=== PATIENT | female | born 1945 | race Caucasian/White ===

== ENCOUNTER → 2016-07-02 | Outpatient (CLI) | payer MEDICARE ==
[~2016-07-02] MED LIST: ASPI-515 PO; CEPH-376 PO; DEXA2TAB PO; ESTR0.5T PO; GADOBUTROL 7.5 MMOL/7.5 ML PFS ONE; LORA-439 PO; OMEP10CA4 PO; PRAV20TA2 PO
== END | disposition home or self-care (01) ==
LOC: CFH 12:57
PROVIDERS: ATTEND Radiology Radiation Oncology
DX: C79.31 Secondary malignant neoplasm of brain (principal); C34.31 Malignant neoplasm of lower lobe, right bronchus or lung; G93.9 Disorder of brain, unspecified
CPT/HCPCS: 70553; A9585

== ENCOUNTER → 2016-07-03 | Outpatient (CLI) | payer MEDICARE ==
[~2016-07-03] MED LIST changes: -GADOBUTROL 7.5 MMOL/7.5 ML PFS ONE
== END | disposition home or self-care (01) ==
LOC: ROC 14:53
PROVIDERS: ATTEND Radiology Radiation Oncology
DX: C34.31 Malignant neoplasm of lower lobe, right bronchus or lung (principal); C79.31 Secondary malignant neoplasm of brain
CPT/HCPCS: G0463

== ENCOUNTER → 2016-10-01 | Outpatient (CLI) | payer MEDICARE ==
[~2016-10-01] MED LIST changes: +GADOBUTROL 7.5 MMOL/7.5 ML VIAL ONE
== END | disposition home or self-care (01) ==
LOC: CFH 12:58
PROVIDERS: ATTEND Radiology Radiation Oncology
DX: C79.31 Secondary malignant neoplasm of brain (principal); C34.90 Malignant neoplasm of unspecified part of unspecified bronchus or lung; J34.1 Cyst and mucocele of nose and nasal sinus; G93.6 Cerebral edema; D32.9 Benign neoplasm of meninges, unspecified
CPT/HCPCS: 70553; A9585

== ENCOUNTER → 2016-10-02 | Outpatient (CLI) | payer MEDICARE ==
[~2016-10-02] MED LIST changes: -GADOBUTROL 7.5 MMOL/7.5 ML VIAL ONE
== END | disposition home or self-care (01) ==
LOC: ROC 09:44
PROVIDERS: ATTEND Radiology Radiation Oncology
DX: C34.31 Malignant neoplasm of lower lobe, right bronchus or lung (principal); C79.31 Secondary malignant neoplasm of brain; G62.9 Polyneuropathy, unspecified
CPT/HCPCS: G0463

== ENCOUNTER → 2016-10-28 | Outpatient (CLI) | payer MEDICARE ==
[~2016-10-28] MED LIST changes: +OMNIPAQUE 350 MG/ML, 100ML BOTTLE ONE
== END | disposition home or self-care (01) ==
LOC: CFH 10:32
PROVIDERS: ATTEND Internal Medicine Hematology & Oncology
DX: C79.51 Secondary malignant neoplasm of bone (principal); R91.8 Other nonspecific abnormal finding of lung field; J43.2 Centrilobular emphysema; I70.0 Atherosclerosis of aorta; D73.89 Other diseases of spleen
CPT/HCPCS: 71260; 74177; Q9967

== ENCOUNTER → 2016-10-28 | Outpatient (CLI) | payer MEDICARE ==
[~2016-10-28] MED LIST changes: -OMNIPAQUE 350 MG/ML, 100ML BOTTLE ONE
== END | disposition home or self-care (01) ==
LOC: PETCFH 10:35
PROVIDERS: ATTEND Internal Medicine Hematology & Oncology
DX: C34.31 Malignant neoplasm of lower lobe, right bronchus or lung (principal)
CPT/HCPCS: 78306; A9503

== ENCOUNTER → 2016-12-04 | Outpatient (CLI) | payer MEDICARE ==
[~2016-12-04] MED LIST changes: +GADOBUTROL 7.5 MMOL/7.5 ML PFS ONE
== END | disposition home or self-care (01) ==
LOC: CFH 07:25
PROVIDERS: ATTEND Radiology Radiation Oncology
DX: C79.31 Secondary malignant neoplasm of brain (principal); C34.31 Malignant neoplasm of lower lobe, right bronchus or lung
CPT/HCPCS: 70553; A9585

== ENCOUNTER → 2016-12-04 | Outpatient (CLI) | payer MEDICARE ==
[~2016-12-04] MED LIST changes: -GADOBUTROL 7.5 MMOL/7.5 ML PFS ONE
== END | disposition home or self-care (01) ==
LOC: ROC 08:10
PROVIDERS: ATTEND Radiology Radiation Oncology
DX: C34.32 Malignant neoplasm of lower lobe, left bronchus or lung (principal); C79.31 Secondary malignant neoplasm of brain; Z92.3 Personal history of irradiation
CPT/HCPCS: G0463

== ENCOUNTER 2016-12-17 14:06 | Inpatient (IN) | payer MEDICARE ==
[~2016-12-17] VITALS: Ht 154.9 cm; Wt 63.0 kg
[2016-12-17] MEDS ORDERED: SODIUM CHLORIDE FLUSH 10ML SYR IVF ONE (15:00)
[2016-12-17] MEDS ORDERED: DEXAMETHASONE 4 MG/ML, 5ML ONE (15:26)
[2016-12-17] MEDS ORDERED: DEXAMETHASONE 4 MG/ML, 1ML IVPush ONE (15:30)
[2016-12-17 15:33] LABS: ASPARTATE AMINO TRANSFERASE 13 U/L (15-37); BLOOD UREA NITROGEN 18 mg/dL (7-18)
[2016-12-17] MEDS ORDERED: ALPR0.5T6 PO (15:59)
[2016-12-17] MEDS ORDERED: FOLI0.4T2 PO (15:59)
[2016-12-17] MEDS ORDERED: ONDA8TAB12 PO (15:59)
[2016-12-17] MEDS ORDERED: ONDANSETRON 2MG/ML, 2ML IVPush PRN (16:30)
[2016-12-17] MEDS ORDERED: OXYcodone IR 5MG TABLET PO PRN (16:30)
[2016-12-17] MEDS ORDERED: DOCUSATE 100 MG CAPSULE PO PRN (16:30)
[2016-12-17] MEDS ORDERED: morphine SULFATE 10 MG/ML, 1ML IVPush PRN (16:30)
[2016-12-17] MEDS ORDERED: ESTRADIOL 0.5 MG TABLET PO SCH (16:30)
[2016-12-17] MEDS ORDERED: POLYETHYLENE GLYCOL 17 GM PACKET PO PRN (16:30)
[2016-12-17] MEDS ORDERED: ACETAMINOPHEN 325 MG TABLET PO PRN (16:30)
[2016-12-17 16:37] LABS: HEMATOCRIT 37.3 % (34.6-47.8); HEMOGLOBIN 12.1 g/dL (11.7-16.4)
[2016-12-17 16:42] LABS: DIFF TOTAL CELLS COUNTED 100 CELL DIFF
[2016-12-17 16:46] LABS: ANISOCYTOSIS 1+; HYPOCHROMIA 1+; MICROCYTOSIS 1+
[2016-12-17 16:49] LABS: VERIFY COUNTS? YES
[2016-12-17 19:10] VITALS: BP 130/76
[2016-12-17] MEDS: ONDANSETRON ODT 8 MG PO SCH ×2 (21:00→21:04)
[2016-12-17] MEDS: DEXAMETHASONE 4 MG TABLET PO SCH (21:04)
[2016-12-17 21:24] VITALS: BP 125/72
[2016-12-17] MEDS: SODIUM CHLORIDE FLUSH 10ML SYR IVF SCH (21:27)
[2016-12-18 00:44] VITALS: BP 135/81
[2016-12-18 07:43] VITALS: BP 132/74
[2016-12-18] MEDS: ONDANSETRON ODT 8 MG PO SCH ×3 (08:55→16:00)
[2016-12-18] MEDS: DEXAMETHASONE 4 MG TABLET PO SCH (08:56)
[2016-12-18] MEDS: SODIUM CHLORIDE FLUSH 10ML SYR IVF SCH (08:57)
[2016-12-18] MEDS ORDERED: LORATADINE 10 MG TABLET PO SCH (09:00)
[2016-12-18] MEDS ORDERED: PRAVASTATIN 20 MG TABLET PO SCH (09:00)
[2016-12-18] MEDS ORDERED: SENNA/DOCUSATE TABLET PO SCH (09:00)
[2016-12-18] MEDS ORDERED: FOLIC ACID 1 MG TABLET PO SCH (09:00)
[2016-12-18 13:22] VITALS: BP 121/66
[2016-12-18] MEDS ORDERED: DEXA4TAB PO (15:27)
== END 2016-12-18 17:42 | disposition home or self-care (01) | DRG 54 ==
LOC: ED 15:42 → EDIP 15:58 → 3NW 19:00
PROVIDERS: ADMIT Family Medicine; ATTEND Family Medicine
DX: C79.31 Secondary malignant neoplasm of brain (principal); G93.6 Cerebral edema; G93.40 Encephalopathy, unspecified; C34.90 Malignant neoplasm of unspecified part of unspecified bronchus or lung; Z85.118 Personal history of other malignant neoplasm of bronchus and lung; Z87.891 Personal history of nicotine dependence; Z92.21 Personal history of antineoplastic chemotherapy
CPT/HCPCS: 36415; 70450; 80053; 81001; 83735; 84443; 85025; 93005; 96374; J1100; Q0162

== ENCOUNTER → 2017-01-22 | Outpatient (CLI) | payer MEDICARE ==
[~2017-01-22] MED LIST changes: +ALPR0.5T6 PO; +DEXA4TAB PO; +FOLI0.4T2 PO; +ONDA8TAB12 PO
== END | disposition home or self-care (01) ==
LOC: RAD 12:15
PROVIDERS: ATTEND Internal Medicine Hematology & Oncology
DX: R91.8 Other nonspecific abnormal finding of lung field (principal); C79.31 Secondary malignant neoplasm of brain; Z85.118 Personal history of other malignant neoplasm of bronchus and lung
CPT/HCPCS: 71020

== ENCOUNTER 2017-01-23 00:57 | Emergency (ER) | payer MEDICARE ==
[~2017-01-23] VITALS: Ht 154.9 cm; Wt 63.6 kg
[2017-01-23 00:58] VITALS: BP 150/77
[2017-01-23] MEDS ORDERED: OXYcodone/APAP 5/325MG TABLET PO ONE (01:30)
[2017-01-23] MEDS ORDERED: OXYcodone/APAP 5/325MG TABLET ONE (02:13)
== END 2017-01-23 02:53 | disposition home or self-care (01) ==
LOC: ED 02:15
DX: G89.11 Acute pain due to trauma (principal); M25.562 Pain in left knee; M25.561 Pain in right knee; Z85.841 Personal history of malignant neoplasm of brain; Z85.118 Personal history of other malignant neoplasm of bronchus and lung; W19.XXXA Unspecified fall, initial encounter; Y93.89 Activity, other specified; Y92.89 Other specified places as the place of occurrence of the external cause; Y99.8 Other external cause status
CPT/HCPCS: 99284